=== PATIENT | male | born 1995 | race Caucasian/White ===

== ENCOUNTER 2018-06-02 14:58 | Emergency (ER) | payer OTHER, SELFPAY ==
[2018-06-02 15:03] VITALS: BP 166/77; PULSE 65; RESP 20; TEMP 37; O2SAT 100
--- NOTE | 2018-06-02 15:12 | DI.CT_ITS ---
SYMPTOM/DIAGNOSIS: LT ABD PAIN BLOATING, DIARRHEA, NAUSEA CT ABDOMEN AND PELVIS: The study was carried out with intravenous administration of 100 cc Omnipaque 350. The lower thorax is unremarkable. Decreased parenchymal density would be consistent with fatty infiltration. The gallbladder is normal. There are no stones or ductal dilatation. The pancreas and spleen and adrenals are normal. There is no evidence of bowel obstruction or mucosal thickening. There is nothing to suggest an acute appendix. The bladder is unremarkable. The reproductive organs as visualized are unremarkable. There is no evidence of free air or free fluid in the intraperitoneal space. No acute bony abnormality seen. The soft tissues are unremarkable. There is no abdominal aortic aneurysm. Prominent lymph nodes at the small bowel mesentery and right lower quadrant. These may be reactive but an infectious or inflammatory process such as mesenteric adenitis cannot be excluded. Clinical correlation is recommended. SUMMARY: Prominent mesenteric nodes. Please see the above discussion.
--- NOTE | 2018-06-02 15:14 | W.ED.GENAD ---
Discharge Plan Discharge Details Chief Complaint: Nausea/Vomit/Diar Primary Care Provider: Steve Min ED Provider: Cristian Hernandez Home Meds and New Rx's Prescriptions: No Action omeprazole 40 MG capsule,delayed release(DR/EC) 40 mg PO DAILY 30 Days Qty: 30 RF: 0 buspirone 15 MG tablet 15 mg PO BID Qty: 60 RF: 11 Medical Decision Making 22-year-old male presents with left-sided abdominal pain and loose watery stools over days time. Associated with bloating sensation on the left side of his abdomen. He is afebrile and well-appearing. He is tender in the abdomen. Differential diagnosis includes colitis, dehydration, ileus, mass. Patient referred for laboratory testing and CT images. Patient has a white blood cell count of 5, hematocrit 47, platelets 199. Sodium 141, potassium 3.4, BUN 12 with creatinine 1.3. AST and ALT unremarkable, glucose is 160. Imaging studies reveal prominent mesenteric lymph nodes. No other acute findings. Consistent with mesenteric adenitis. Discussed findings with patient and she is stable for outpatient management. HPI General Mode of arrival: ambulatory. Date/Time Provider Initiated Documentation: 06/02/18 15:00. Limitations to Documentation: no limitations. Information obtained by: patient. History of Present Illness 22 year old M presents to the emergency department with the chief complaint of Abdominal pain, described as mild, Quality is described as dull, and is localized to the abdomen and left. Patient reports no radiation. Patient started experiencing this day(s) and it has been constant. No relieving factors improve symptom(s), HPI Narrative: Left abdominal pain and bloating: This is a 22-year-old healthy male who states that he has had intermittent episodes of left-sided abdominal pain that is achy, nonradiating, worse with eating and associated with bloating and belching. He has had loose, watery stools 4-5 times a day over 1 week's time. He has not had a fever. No travel. No known suspicious or ill contact Related Data Home Medications Medication Instructions Recorded Confirmed omeprazole 40 mg PO DAILY 30 Days #30 tab-cap 11/18/17 06/02/18 buspirone 15 mg PO BID #60 tab-cap 02/03/18 06/02/18 Previous Rx's Medication Instructions Recorded omeprazole 40 mg PO DAILY 30 Days #30 tab-cap 11/18/17 buspirone 15 mg PO BID #60 tab-cap 02/03/18 Allergies Allergy/AdvReac Type Severity Reaction Status Date / Time No Known Allergies Allergy Unverified 06/02/18 15:05 General Stated Complaint: Nausea/Vomit/Diar MANJINDER: 4 Review of Systems Review of Systems 8 systems reviewed and otherwise negative PFSH Family History Mother Hyperlipidemia Asthma Father No problems noted. Sister Asthma Grandfather Mental disorder Grandfather Diabetes Essential hypertension Personal history of malignant neoplasm Heart disease Cerebrovascular accident Grandmother Essential hypertension Heart disease Hyperlipidemia Asthma Grandmother Diabetes Essential hypertension Hyperlipidemia Social History Smoking/Tobacco Use Status: Never Exam Narrative Exam Narrative: GEN: awake, alert, oriented 3. Pleasant, well groomed, interactive. HEAD: Normocephalic, atraumatic ENT: Mucous membranes moist, oropharynx unremarkable, External ear exam unremarkable EYES: PERRL, EOMI NECK: Full ROM, no HUE, no menigismus CHEST/RESP: Nontender, clear to auscultation bilateral, no wheeze/rhonchi/rales CARDIOVASCULAR: RRR, no murmur, rub anali. 2+ Rad pulse bilateral ABDOMEN: Soft, left-sided tenderness to palpation without rebound or guarding, no mass. +Bowel sounds EXT: Full ROM, no edema, no rash Neuro: Grossly normal neurologic exam, conversant, interactive. Psych: Speech fluent, thoughts congruent, affect normal Course Vital Signs Temperature 37 C 06/02/18 15:03 Pulse 65 06/02/18 15:03 Respiratory Rate 20 06/02/18 15:03 Blood Pressure 166/77 H 06/02/18 15:03 Pulse Oximetry 100 06/02/18 15:03 Temperature 37 C 06/02/18 15:03 Temperature Source Temporal Artery Scan 06/02/18 15:03 Pulse 65 06/02/18 15:03 Respiratory Rate 20 06/02/18 15:03 Respiratory Effort Non-Labored 06/02/18 15:06 Blood Pressure 166/77 H 06/02/18 15:03 Pulse Oximetry 100 06/02/18 15:03 Oxygen Delivery Method Room Air 06/02/18 15:03 Oxygen Flow Rate 0 06/02/18 15:03 Pain Level 2 06/02/18 15:03
--- NOTE | 2018-06-02 15:17 | ED.GENADUL_ITS ---
Discharge Plan Discharge Details Chief Complaint: Nausea/Vomit/Diar Primary Care Provider: Steve Min ED Provider: Cristian Hernandez Home Meds and New Rx's Prescriptions: No Action omeprazole 40 MG capsule,delayed release(DR/EC) 40 mg PO DAILY 30 Days Qty: 30 RF: 0 buspirone 15 MG tablet 15 mg PO BID Qty: 60 RF: 11 Medical Decision Making 22-year-old male presents with left-sided abdominal pain and loose watery stools over days time. Associated with bloating sensation on the left side of his abdomen. He is afebrile and well-appearing. He is tender in the abdomen. Differential diagnosis includes colitis, dehydration, ileus, mass. Patient referred for laboratory testing and CT images. Patient has a white blood cell count of 5, hematocrit 47, platelets 199. Sodium 141, potassium 3.4, BUN 12 with creatinine 1.3. AST and ALT unremarkable , glucose is 160. Imaging studies reveal prominent mesenteric lymph nodes. No other acute findings. Consistent with mesenteric adenitis. Discussed findings with patient and she is stable for outpatient management. HPI General Mode of arrival: ambulatory . Date/Time Provider Initiated Documentation: 06/02/18 15:00 . Limitations to Documentation: no limitations . Information obtained by: patient . History of Present Illness 22 year old M presents to the emergency department with the chief complaint of Abdominal pain, described as mild, Quality is described as dull, and is localized to the abdomen and left. Patient reports no radiation. Patient started experiencing this day(s) and it has been constant. No relieving factors improve symptom(s), HPI Narrative: Left abdominal pain and bloating: This is a 22-year-old healthy male who states that he has had intermittent episodes of left-sided abdominal pain that is achy, nonradiating, worse with eating and associated with bloating and belching. He has had loose, watery stools 4-5 times a day over 1 week's time. He has not had a fever. No travel. No known suspicious or ill contact Related Data Home Medications Medication Instructions Recorded Confirmed omeprazole 40 mg PO DAILY 30 Days #30 tab-cap 11/18/17 06/02/18 buspirone 15 mg PO BID #60 tab-cap 02/03/18 06/02/18 Previous Rx's Medication Instructions Recorded omeprazole 40 mg PO DAILY 30 Days #30 tab-cap 11/18/17 buspirone 15 mg PO BID #60 tab-cap 02/03/18 Allergies Allergy/AdvReac Type Severity Reaction Status Date / Time No Known Allergies Allergy Unverified 06/02/18 15:05 General Stated Complaint: Nausea/Vomit/Diar MANJINDER: 4 Review of Systems Review of Systems 8 systems reviewed and otherwise negative PFSH Family History Mother Hyperlipidemia Asthma Father No problems noted. Sister Asthma Grandfather Mental disorder Grandfather Diabetes Essential hypertension Personal history of malignant neoplasm Heart disease Cerebrovascular accident Grandmother Essential hypertension Heart disease Hyperlipidemia Asthma Grandmother Diabetes Essential hypertension Hyperlipidemia Social History Smoking/Tobacco Use Status: Never Exam Narrative Exam Narrative: GEN: awake, alert, oriented 3. Pleasant, well groomed, interactive. HEAD: Normocephalic, atraumatic ENT: Mucous membranes moist, oropharynx unremarkable, External ear exam unremarkable EYES: PERRL, EOMI NECK: Full ROM, no HUE, no menigismus CHEST/RESP: Nontender, clear to auscultation bilateral, no wheeze/rhonchi/rales CARDIOVASCULAR: RRR, no murmur, rub anali. 2+ Rad pulse bilateral ABDOMEN: Soft, left-sided tenderness to palpation without rebound or guarding, no mass. +Bowel sounds EXT: Full ROM, no edema, no rash Neuro: Grossly normal neurologic exam, conversant, interactive. Psych: Speech fluent, thoughts congruent, affect normal Course Vital Signs Temperature 37 C 06/02/18 15:03 Pulse 65 06/02/18 15:03 Respiratory Rate 20 06/02/18 15:03 Blood Pressure 166/77 H 06/02/18 15:03 Pulse Oximetry 100 06/02/18 15:03 Temperature 37 C 06/02/18 15:03 Temperature Source Temporal Artery Scan 06/02/18 15:03 Pulse 65 06/02/18 15:03 Respiratory Rate 20 06/02/18 15:03 Respiratory Effort Non-Labored 06/02/18 15:06 Blood Pressure 166/77 H 06/02/18 15:03 Pulse Oximetry 100 06/02/18 15:03 Oxygen Delivery Method Room Air 06/02/18 15:03 Oxygen Flow Rate 0 06/02/18 15:03 Pain Level 2 06/02/18 15:03
[2018-06-02] MEDS: Lactated Ringers 1,000 ML 1000 ML IV (15:30)
[2018-06-02 15:34] LABS: Abs Immature Grans 0.01 k/cumm (0.0-0.09); Absolute Basophil Count 0.07 k/cumm (0.0-0.2); Absolute Eosinophil Count 0.29 k/cumm (0.0-0.7); Absolute Lymphocyte Count 2.17 k/cumm (1.2-3.4); Absolute Neutrophil Count 2.45 k/cumm (1.2-6.7); Basophils % 1.3; Eosinophils % 5.2; HGB 15.3 g/dL (13.5-17.5); Immature Grans % 0.2; Lymphocytes % 38.8; Mean Corp. HGB Concentration 32.6 g/dL (32.0-36.0); Mean Platelet Volume 10.7 fL (8.0-11.0); Monocytes % 10.7; Neutrophils % 43.8; Platelet Count 199 x1000/uL (130-400); RBC 5.66 m/cumm (4.50-6.00); RBC Distribution Width 13.5 % (11.8-14.1); White Blood Cell Count 5.59 k/cumm (4.4-10.8)
[2018-06-02 15:44] LABS: ALT 16 U/L (12-78); AST 11 U/L (15-37); Albumin 4.3 g/dL (3.4-5.0); Alkaline Phosphatase 77 U/L (46-116); Anion Gap 8.4 mmol/L (3-11); BUN 12 mg/dL (7-18); Bilirubin, Total 0.5 mg/dL (0.2-1.0); CO2 29.6 mmol/L (21.0-32.0); CREATININE 1.31 mg/dL (0.70-1.30); Calcium 8.7 mg/dL (8.5-10.1); Chloride 103 mmol/L (98-107); Glucose 116 mg/dL (70-100); Potassium 3.4 mmol/L (3.5-5.1); Sodium 141 mmol/L (136-145); Total Protein 7.7 g/dL (6.4-8.2)
[2018-06-02] MEDS: Omnipaque 350 MG/ML 100 ML BTL IV (15:56)
--- NOTE | 2018-06-02 16:37 | DI.VRAD_ITS ---
EXAM: CT Abdomen and Pelvis With Intravenous Contrast EXAM DATE/TIME: 06/02/2018 3:49 PM CLINICAL HISTORY: 22 years old, male; Signs and symptoms; Nausea and vomiting and other: Left sided abd pain TECHNIQUE: Axial computed tomography images of the abdomen and pelvis with intravenous contrast. All CT scans at this facility use at least one of these dose optimization techniques: automated exposure control; mA and/or kV adjustment per patient size (includes targeted exams where dose is matched to clinical indication); or iterative reconstruction. Coronal and sagittal reformatted images were created and reviewed. CONTRAST: 100 ml of omnipaque 350 administered intravenously. COMPARISON: No relevant prior studies available. FINDINGS: Lower thorax: No acute findings. ABDOMEN: Liver: Diffuse decrease in hepatic parenchymal density, consistent with fatty infiltration. Gallbladder and bile ducts: Normal. No calcified stones. No ductal dilation. Pancreas: Normal. No ductal dilation. Spleen: Normal. No splenomegaly. Adrenals: Normal. No mass. Kidneys and ureters: Normal. No hydronephrosis. Stomach and bowel: Normal. No obstruction. No mucosal thickening. Appendix: No evidence of appendicitis. PELVIS: Bladder: Unremarkable as visualized. Reproductive: Unremarkable as visualized. ABDOMEN and PELVIS: Intraperitoneal space: See Lymph Nodes Finding. Bones/joints: No acute fracture. No dislocation. Soft tissues: Unremarkable. Vasculature: Normal. No abdominal aortic aneurysm. Lymph nodes: Prominent lymph nodes at the small bowel mesentery and right lower quadrant. These may be reactive, but an infectious, or inflammatory process such as mesenteric adenitis cannot be excluded. Correlate clinically. IMPRESSION: Prominent mesenteric nodes, see above comments. Dictated and Authenticated by: Trenton Santos MD. Ordering:ALISA GARCIA MD
[2018-06-02 16:48] VITALS: BP 166/77; PULSE 65; RESP 20; TEMP 37; O2SAT 100
== END 2018-06-02 17:10 | disposition home or self-care (01) ==
PROVIDERS: Emergency Provider Emergency Medicine; PCP Family Medicine
DX: I88.0 Nonspecific mesenteric lymphadenitis (principal)
CPT/HCPCS: 36415; 80053; 96360; 96361; 99285; 74177; 85025; 99284; J3490

== ENCOUNTER 2019-11-10 02:56 | Outpatient (CLI) | payer OTHER, SELFPAY ==
[2019-11-10 14:17] LABS: Calculated LDL 139 mg/dL (<100); Cholesterol 226 mg/dL (<200); HDL Cholesterol 68 mg/dL (40-60); Triglyceride 96 mg/dL (<150)
== END 2019-11-10 03:16 ==
PROVIDERS: PCP Family Medicine; Visit Provider Family Medicine
DX: Z83.438 Family history of other disorder of lipoprotein metabolism and other lipidemia (principal); Z13.220 Encounter for screening for lipoid disorders
CPT/HCPCS: 36415; 80061

== ENCOUNTER 2020-02-17 13:58 | Outpatient (CLI) | payer OTHER, SELFPAY ==
[2020-02-18 02:48] LABS: COVID-19 RT-PCR UVMMC Result Negative (Negative)
== END 2020-02-17 14:18 ==
PROVIDERS: PCP Family Medicine; Visit Provider Family Medicine
DX: Z11.59 Encounter for screening for other viral diseases (principal)
CPT/HCPCS: U0003

== ENCOUNTER 2020-08-13 13:08 | Outpatient (CLI) | payer OTHER, SELFPAY ==
[2020-08-15 09:41] LABS: COVID-19 RT-PCR Result Positive (Negative)
== END 2020-08-13 13:28 ==
PROVIDERS: PCP Family Medicine; Visit Provider Family Medicine
DX: Z20.828 Contact with and (suspected) exposure to other viral communicable diseases (principal)
CPT/HCPCS: U0003

== ENCOUNTER 2020-09-27 12:00 | Outpatient (REF) | payer OTHER, SELFPAY ==
[2020-10-02 15:32] LABS: Helicobacter pylori Ag, Feces Negative (Negative)
== END 2020-09-27 12:20 ==
LOC: LBN 12:00
PROVIDERS: PCP Family Medicine; Visit Provider Family Medicine
DX: R10.9 Unspecified abdominal pain (principal)
CPT/HCPCS: 87338

== ENCOUNTER 2020-12-03 09:34 | Outpatient (CLI) | payer OTHER, SELFPAY ==
[2020-12-04 13:45] LABS: COVID-19 RT-PCR UVMMC Result Negative (Negative)
== END 2020-12-03 09:35 | disposition home or self-care (01) ==
PROVIDERS: PCP Family Medicine; Visit Provider Nurse Practitioner Family
DX: Z20.828 Contact with and (suspected) exposure to other viral communicable diseases (principal)
CPT/HCPCS: U0003

== ENCOUNTER 2020-12-31 10:27 | Observation (INO) | payer OTHER, SELFPAY ==
[2020-12-31] VITALS (48 sets, daily range): BP systolic 121–166; BP diastolic 58–87; PULSE 62–101; RESP 12–18; TEMP 36–37; O2SAT 87–100; BMI 25.1
--- NOTE | 2020-12-31 10:43 | W.ED.GENAD ---
Discharge Plan Discharge Details Chief Complaint: Abd Prob Attending Provider: Yosef Guerra Primary Care Provider: Steve Min ED Provider: Margarita Michel Discharge Data Discharge Date/Time-TO BE ENTERED AT DEPARTURE: 12/31/20 15:47 Medical Decision Making Jake Bustamante is a 25-year-old man with a history of irritable bowel syndrome, anxiety who presented to emergency department with several days of nausea and right-sided abdominal pain that began this morning. On exam patient is well and nontoxic-appearing. He appears comfortable. Right lower quadrant tenderness palpation greater than right upper quadrant tenderness palpation, negative Herrera's, no rebound, no guarding. No left-sided abdominal tenderness to palpation. Concern for irritable bowel syndrome, appendicitis, gastroenteritis, other. Doubt ureterolithiasis. Exam/history at this time is not consistent with acute coronary syndrome, mesenteric ischemia, sepsis, acute aortic pathology. Plan for IV fluid hydration, screening labs, CT abdomen/pelvis. Patient declines nausea medication and pain medication at this time. CT shows enlarged appendix concerning for appendicitis per radiology. I discussed patient presentation results with Dr. Guerra of surgery, who states that she will be down to see the patient, requests Mamta. Discussed results with patient. He states that he did eat 1 bite of a pop tart sometime before 1030 this morning, no other p.o. intake since midnight. Patient reports that pain is mild at this time and declines pain meds. Clinical impression: Appendicitis Disposition: OR Medical Records Medical records reviewed: Yes I reviewed the patient's medical records. Imaging Data Radiologic Study: Attestation: I personally reviewed and interpreted this imaging study as follows: Radiologist's impression: EXAM: CT ABDOMEN PELVIS W CLINICAL HISTORY: RLQ pain > RUQ pain. TECHNIQUE: Imaging Protocol: Axial computed tomography images with coronal and sagittal reformatted images were created and reviewed CONTRAST MATERIAL: Intravenous: Omnipaque 100cc Oral: None FINDINGS: VISUALIZED LUNG BASES: No nodules nor pleural effusions evident. ABDOMEN: There is no ascites. LIVER: There are no focal hepatic lesions evident . GALLBLADDER/BILIARY: No obvious gallbladder pathology. CBD is not dilated. PANCREAS: No evidence of pancreatic mass nor dilatation of the pancreatic duct. SPLEEN: Spleen is not enlarged. No obvious intrasplenic lesions. Splenic and portal veins are patent. ADRENALS: There are no significant adrenal masses. KIDNEYS:No cysts evident. No solid renal masses. No calculi nor hydronephrosis.. ABDOMINAL AORTA: Abdominal aorta is not enlarged. LYMPH NODES:There is no retroperitineal nor paraaortic adenopathy. ABDOMINAL WALL/GI: No evidence of significant anterior abdominal wall hernia. No bowel obstruction. PELVIS: GI: The appendix is abnormally thickened to 9 millimeters... Suspicious for appendicitis. No appendicular lith. No prominent periappendiceal streaking at this time. Nevertheless the appendix does appears significantly more thick in diameter than on the May 2018 CT scan. LYMPH NODES: There is no intrapelvic nor inguinal adenopathy. REPRODUCTIVE: Age-appropriate URINARY BLADDER: No calculi nor obvious masses evident OSSEOUS: No significant osseous lesions. IMPRESSION: 1. Findings are suspicious for acute appendicitis. No evidence of rupture at this time. Lab Data Lab results reviewed: Yes I reviewed the patient's lab results. Labs: Laboratory Tests Range/Units 12/31/20 12/31/20 12/31/20 10:38 10:38 11:48 WBC (4.4-10.8) 10^3/uL 10.84 H RBC (4.36-5.78) 10^6/uL 5.86 H Hgb (13.5-17.5) g/dL 16.1 Hct (40.0-50.0) % 49.1 MCV (80-95) fL 83.8 MCH (27.0-33.0) pg 27.5 MCHC (32.0-36.0) % 32.8 RDW (11.8-14.1) % 12.5 Plt Count (130-400) 10^3/uL 161 MPV (8.0-11.0) fL 10.8 Immature Gran % 0.5 Neutrophils % 78.2 Lymphocytes % 11.0 Monocytes % 8.0 Eosinophils % 1.9 Basophils % 0.4 Nucleated RBC % % 0 Absolute Neutrophils (1.2-6.7) 10^3/uL 8.48 H Absolute Lymphocytes (1.2-3.4) 10^3/uL 1.19 L Absolute Monocytes (0.1-0.8) 10^3/uL 0.87 H Absolute Eosinophils (0.0-0.7) 10^3/uL 0.21 Absolute Basophils (0.0-0.2) 10^3/uL 0.04 Sodium (136-145) mmol/L 139 Potassium (3.5-5.1) mmol/L 3.8 Chloride (98-107) mmol/L 101 Carbon Dioxide (21.0-32.0) mmol/L 29.7 Anion Gap (3-11) mmol/L 8.3 BUN (7-18) mg/dL 11 Creatinine (0.70-1.30) mg/dL 1.0 Estimated GFR/1.73 m2 (mL/min/1.73m2) >= 60.00 Glucose (74-106) mg/dL 100 Calcium (8.5-10.1) mg/dL 9.4 Total Bilirubin (0.2-1.0) mg/dL 0.9 AST (15-37) U/L 14 L ALT (16-63) U/L 23 Alkaline Phosphatase (46-116) U/L 91 Total Protein (6.4-8.2) g/dL 8.1 Albumin (3.4-5.0) g/dL 4.6 Lipase (73-393) U/L 70 Urine Color (Yellow) Yellow Urine Clarity (Clear) Clear Urine pH (5-8) 8.0 Ur Specific [place] (1.005-1.025) 1.020 Urine Protein (Negative) mg/dL Negative Urine Ketones (Negative) mg/dL Negative Urine Blood (Negative) Negative Urine Nitrite (Negative) Negative Urine Bilirubin (Negative) Negative Urine Urobilinogen (Up TO 0.2) EU/dL 0.2 Ur Leukocyte Esterase (Negative) Negative Urine Glucose (Negative) mg/dL Negative HPI General Mode of arrival: ambulatory. Date/Time Provider Initiated Documentation: 12/31/20 10:43. Limitations to Documentation: no limitations. Information obtained by: patient, RN notes reviewed and old records reviewed. HPI Narrative: Jake Bustamante is a 25-year-old man with a history of irritable bowel syndrome, anxiety presenting to the emergency department with abdominal pain. Patient reports that he has had nausea for several days. He reports that he has been able to eat and drink as usual up until this morning. Patient reports he woke up this morning at 530 with right-sided abdominal pain, worse in the right upper quadrant. Patient reports that pain has gradually been getting worse. He states that his nausea has continued and he had 1 episode of diarrhea prior to arrival. Bowel movements normal in the last 2 days without diarrhea or constipation. He denies fever, vomiting, any other new pain, cough, shortness of breath, numbness, weakness, rash, dysuria. Patient concerned that he has a history of irritable bowel syndrome, states that his pain usually manifest as left upper quadrant pain and that he has never had similar pain to what he is currently experiencing. Patient reports that he was unable to eat anything this morning secondary to nausea. He states that he drinks 1-2 alcoholic beverages per week, and drink 2 alcoholic beverages 2 days ago. He denies recreational drug use, nicotine/tobacco use. Related Data Home Medications Medication Instructions Recorded Confirmed pantoprazole 40 mg tablet,delayed 40 mg PO DAILY 12/12/20 12/31/20 release Allergies Allergy/AdvReac Type Severity Reaction Status Date / Time No Known Allergies Allergy Verified 12/31/20 10:34 General Stated Complaint: Abd Prob MANJINDER: 3 Review of Systems Narrative: Constitutional: denies fevers Eyes: denies eye pain ENT: denies ear pain, dental pain, sore throat Cardiovascular: denies chest pain Respiratory: denies SOB, cough GI: denies vomiting, reports abdominal pain, nausea, diarrhea : denies flank pain MSK: denies back pain, neck pain, arthralgias, myalgias Skin: denies rash Neuro: denies headaches, numbness, weakness FOR[facility], [facility] Medical History Ingrown toenail of left foot Family History Mother Hyperlipidemia Asthma Father Hyperlipidemia Hypertension Sister Asthma Maternal Grandfather , 49 Mental disorder Depression Alcohol abuse Depression Paternal Grandfather , 76 Diabetes Essential hypertension Heart disease Stroke Skin cancer Maternal Grandmother , 58 Essential hypertension Heart disease Hyperlipidemia Asthma Alcohol abuse Depression Diabetes Paternal Grandmother , 74 Diabetes Essential hypertension Hyperlipidemia Depression Heart disease Social History Smoking/Tobacco Use Status: Never Second Hand Exposure: Yes Smoking risk assessment performed?: Yes Alcohol Intake: current Alcohol Intake frequency: a few times a month Alcohol type: beer, wine and hard liquor Drug use: Never Substance use type: does not use Caregiver/Support person: No Household members: significant other Housing: apartment Communication Needs: None Do you need help understanding health information?: Rarely Pets and animals: Yes Pets and animals: dog(s) Sexually active: Yes Do you think of yourself as: straight/heterosexual Current gender identity: male What is your relationship status?: living with partner How often do you talk on the phone with friends or family?: never How often do you get together with friends or relatives?: twice per week How often do you attend sabianism or jew services?: decline to answer Do you belong to any clubs or organized social groups?: no Panel score (0-1 are the most socially isolated patients): 1 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: 5-6 times per week Bella/Yazidism: none Special bella needs: No Seatbelt use: always Helmet use: Yes Helmet use: always Drive intox or ride w/intox regional driver: No Do you feel safe at home: Yes Do you feel safe in your relationship?: Yes Exam Narrative Exam Narrative: Constitutional: well and [id number], pleasant, conversing normally HENT: head atraumatic/normocephalic/normal inspection, mucous membranes moist Eyes: conjunctiva normal, sclera normal, pupils 3mm b/l Neck: no stridor, normal ROM, trachea midline Resp: normal work of breathing, speaking full sentences Cardio: normal rate, normal rhythm GI: abdomen soft, non-distended, right lower quadrant tenderness to palpation greater than right upper quadrant, no left-sided tenderness to palpation, no rebound, no guarding Skin: warm, dry, normal color, no rash Neuro: alert, not altered, grossly non-focal, normal tone Ext: Moving all extremities equally Psych: normal mood, normal affect, normal behavior Course Vital Signs Vital signs: Vital Signs Temperature 36 C L 12/31/20 10:31 Pulse 88 12/31/20 10:31 Respiratory Rate 16 12/31/20 10:31 Blood Pressure 166/83 H 12/31/20 10:31 Pulse Oximetry 100 12/31/20 10:31 Temperature 36 C L 12/31/20 10:31 Temperature Source Skin 12/31/20 10:31 Pulse 88 12/31/20 10:34 Respiratory Rate 16 12/31/20 10:31 Respiratory Effort Non-Labored 12/31/20 10:35 Blood Pressure 166/83 H 12/31/20 10:34 Blood Pressure Mean 103 12/31/20 10:34 Blood Pressure Position Supine 12/31/20 10:31 Pulse Oximetry 100 12/31/20 10:35 Oxygen Delivery Method Room Air 12/31/20 10:31 Oxygen Flow Rate 0 12/31/20 10:31 Pain Level 5 12/31/20 10:35
[2020-12-31] MEDS: Normal Saline 1,000 ML 1000 ML IV (11:07)
[2020-12-31 11:23] LABS: Abs Immature Grans 0.05 10^3/uL (0.0-0.06); Absolute Basophil Count 0.04 10^3/uL (0.0-0.2); Absolute Eosinophil Count 0.21 10^3/uL (0.0-0.7); Absolute Lymphocyte Count 1.19 10^3/uL (1.2-3.4); Absolute Monocyte Count 0.87 10^3/uL (0.1-0.8); Absolute Neutrophil Count 8.48 10^3/uL (1.2-6.7); Basophils % 0.4; Eosinophils % 1.9; HCT 49.1 % (40.0-50.0); HGB 16.1 g/dL (13.5-17.5); Immature Grans % 0.5; MCH 27.5 pg (27.0-33.0); MCHC 32.8 % (32.0-36.0); MCV 83.8 fL (80-95); MPV 10.8 fL (8.0-11.0); Neutrophils % 78.2; Nucleated RBC 0 %; Platelet Count 161 10^3/uL (130-400); RBC 5.86 10^6/uL (4.36-5.78); RDW 12.5 % (11.8-14.1); WBC 10.84 10^3/uL (4.4-10.8)
[2020-12-31 11:34] LABS: ALT 23 U/L (16-63); AST 14 U/L (15-37); Albumin 4.6 g/dL (3.4-5.0); Alkaline Phosphatase 91 U/L (46-116); Anion Gap 8.3 mmol/L (3-11); BUN 11 mg/dL (7-18); Bilirubin, Total 0.9 mg/dL (0.2-1.0); CO2 29.7 mmol/L (21.0-32.0); Calcium 9.4 mg/dL (8.5-10.1); Chloride 101 mmol/L (98-107); Glucose 100 mg/dL (74-106); Lipase 70 U/L (73-393); Potassium 3.8 mmol/L (3.5-5.1); Sodium 139 mmol/L (136-145); Total Protein 8.1 g/dL (6.4-8.2)
--- NOTE | 2020-12-31 11:45 | DI.CT_ITS ---
EXAM: CT ABDOMEN PELVIS W CLINICAL HISTORY: RLQ pain > RUQ pain. TECHNIQUE: Imaging Protocol: Axial computed tomography images with coronal and sagittal reformatted images were created and reviewed CONTRAST MATERIAL: Intravenous: Omnipaque 100cc Oral: None FINDINGS: VISUALIZED LUNG BASES: No nodules nor pleural effusions evident. ABDOMEN: There is no ascites. LIVER: There are no focal hepatic lesions evident . GALLBLADDER/BILIARY: No obvious gallbladder pathology. CBD is not dilated. PANCREAS: No evidence of pancreatic mass nor dilatation of the pancreatic duct. SPLEEN: Spleen is not enlarged. No obvious intrasplenic lesions. Splenic and portal veins are paten t. ADRENALS: There are no significant adrenal masses. KIDNEYS:No cysts evident. No solid renal masses. No calculi nor hydronephrosis.. ABDOMINAL AORTA: Abdominal aorta is not enlarged. LYMPH NODES:There is no retroperitineal nor paraaortic adenopathy. ABDOMINAL WALL/GI: No evidence of significant anterior abdominal wall hernia. No bowel obstruction. PELVIS: GI: The appendix is abnormally thickened to 9 millimeters... Suspicious for appendicitis. No append icular lith. No prominent periappendiceal streaking at this time. Nevertheless the appendix does ap pears significantly more thick in diameter than on the May 2018 CT scan. LYMPH NODES: There is no intrapelvic nor inguinal adenopathy. REPRODUCTIVE: Age-appropriate URINARY BLADDER: No calculi nor obvious masses evident OSSEOUS: No significant osseous lesions. IMPRESSION: 1. Findings are suspicious for acute appendicitis. No evidence of rupture at this time. RADIATION DOSE DELIVERED: 589.99mGy.cm Total DLP DATA REPOSITORY: All CT scans at this facility are submitted to the National Radiology Data Registry (NRDR) Dose Index Registry (DIR) with the [employer] (ACR). RADIATION OPTIMIZATION: All CT scans at this facility use at least one of these dose optimization te chniques: automated exposure control; mA and/or kV adjustment per patient size (includes targeted exa ms where dose is matched to clinical indication); or iterative reconstruction.
[2020-12-31 11:55] LABS: Bilirubin Negative (Negative); Blood Negative (Negative); Clarity Clear (Clear); Glucose Negative (Negative); Ketones Negative (Negative); Leukocyte Esterase Negative (Negative); Nitrite Negative (Negative); Urobilinogen 0.2 EU/dL (Up TO 0.2)
[2020-12-31] MEDS: Normal Saline - Diluent 50 ML VIAL IV (12:10)
[2020-12-31] MEDS: Normal Saline Flush 10 ML SYR IVP ×2 (12:11→23:38)
[2020-12-31] MEDS: PIPERACILLIN/TAZO 3.375 GM in Normal Saline 50 ML IVPB (12:56)
[2020-12-31 13:04] LABS: Source Nasal/Nares
[2020-12-31 13:45] LABS: COVID-19 PCR Negative (Negative)
--- NOTE | 2020-12-31 15:08 | W.ANESPRE ---
Anesthesia Assessment and Plan Anesthesia History Personal History: No History of Anesthesia Complications Family History: No Family History of Anesthesia Complications Exercise Tolerance Exercise Tolerance: Metabolic Equivalents>4 Pertinent Negatives Pertinent Negatives: No Symptoms of GERD (no symptoms today controlled with pantoprazole) Cardiac & Pulmonary Exam Cardiac Exam: Normal S1/S2 Heart Sounds Pulmonary Exam: Clear Bilateral Breath Sounds Airway Exam Known Difficult Airway: No Mallampati Class: 1 Mouth Opening: Normal (> 3cm) Thyromental Distance: Greater than 3 cm Neck Range of Motion: Full ROM Neck Circumference: Normal Teeth Condition: Normal Dentition ASA Classification ASA Score: ASA 2 ASA Emergency: Yes NPO Status NPO Status: NPO Clears >2 hours, Solids >8 hours Anesthesia Plan Anesthesia Technique: General Anesthesia Airway Planned: Endotracheal Tube Monitors Used: Standard Monitors General Info Date of Service This is a Shared Provider Document. All providers who document on this will be required to sign document once completed. Please Communicate with Team Date Performed: 12/31/20 Height: 5 ft 9 in Weight: 77.111 kg Body Mass Index (BMI): 25.1 Vital Signs and Lab Results Vital Signs Most Recent Vital Signs in EMR: Most Recent Vital Signs Temp Pulse Resp BP Pulse Ox 36 C L 72 16 126/58 L 99 12/31/20 10:31 12/31/20 14:01 12/31/20 10:31 12/31/20 14:01 12/31/20 14:01 Point of Care Results Nursing Point of Care Results: No Data to Display Lab Results Result Diagrams: 12/31/20 10:38 12/31/20 10:38 Blood Type / Crossmatch: No Data to Display Complete Blood Count: White Blood Count 10.84 10^3/uL (4.4-10.8) H 12/31/20 10:38 12/31/20 Red Blood Count 5.86 10^6/uL (4.36-5.78) H 12/31/20 10:38 12/31/20 Hemoglobin 16.1 g/dL (13.5-17.5) 12/31/20 10:38 12/31/20 Hematocrit 49.1 % (40.0-50.0) 12/31/20 10:38 12/31/20 Platelet Count 161 10^3/uL (130-400) 12/31/20 10:38 12/31/20 Complete Metabolic Panel: Sodium Level 139 mmol/L (136-145) 12/31/20 10:38 12/31/20 Potassium Level 3.8 mmol/L (3.5-5.1) 12/31/20 10:38 12/31/20 Chloride Level 101 mmol/L (98-107) 12/31/20 10:38 12/31/20 Carbon Dioxide Level 29.7 mmol/L (21.0-32.0) 12/31/20 10:38 12/31/20 Blood Urea Nitrogen 11 mg/dL (7-18) 12/31/20 10:38 12/31/20 Creatinine 1.0 mg/dL (0.70-1.30) 12/31/20 10:38 12/31/20 Calcium Level 9.4 mg/dL (8.5-10.1) 12/31/20 10:38 12/31/20 Albumin 4.6 g/dL (3.4-5.0) 12/31/20 10:38 12/31/20 Glucose Level 100 mg/dL (74-106) 12/31/20 10:38 12/31/20 Liver Function Panel: Alanine Aminotransferase (ALT/SGPT) 23 U/L (16-63) 12/31/20 10:38 12/31/20 Aspartate Amino Transf (AST/SGOT) 14 U/L (15-37) L 12/31/20 10:38 12/31/20 Coagulation Panel: D-Dimer 1145 ng/mlFEU (65-500) H 04/01/16 12:35 04/01/16 Cardiac Panel: No Data to Display Arterial Blood Gas: No Data to Display Venous Blood Gas: No Data to Display Pancreas Panel: Lipase 70 U/L (73-393) 12/31/20 10:38 12/31/20 Thyroid Panel: No Data to Display Infectious Disease: Coronavirus (COVID-19)(PCR) Negative (Negative) 12/31/20 13:00 12/31/20 Coronavirus 2019 Source Nasal/nares 12/31/20 13:00 12/31/20 Group A Streptococcus Rapid Negative 11/13/17 13:21 11/13/17 Blood Cultures: Blood Culture Toxicology Panel: No Data to Display Panel: No Data to Display PFSH Active Problems Active Problems: Problem Status Onset Code Ingrown toenail of left foot L60.0 Abdominal pain R10.9 Family history of hyperlipidemia Z83.438 IBS (irritable bowel syndrome) K58.9 Multiple somatic complaints 12/09/17 R68.89 Anxiety 12/09/17 F41.9 Medical History Ingrown toenail of left foot Social History Smoking/Tobacco Use Status: Never Second Hand Exposure: Yes Smoking risk assessment performed?: Yes Alcohol Intake: current Alcohol Intake frequency: a few times a month Alcohol type: beer, wine and hard liquor Drug use: Never Substance use type: does not use Caregiver/Support person: No Household members: significant other Housing: apartment Communication Needs: None Do you need help understanding health information?: Rarely Pets and animals: Yes Pets and animals: dog(s) Sexually active: Yes Do you think of yourself as: straight/heterosexual Current gender identity: male What is your relationship status?: living with partner How often do you talk on the phone with friends or family?: never How often do you get together with friends or relatives?: twice per week How often do you attend scientologist or christianity services?: decline to answer Do you belong to any clubs or organized social groups?: no Panel score (0-1 are the most socially isolated patients): 1 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: 5-6 times per week Bella/Christianity: none Special bella needs: No Seatbelt use: always Helmet use: Yes Helmet use: always Drive intox or ride w/intox route cdl driver: No Do you feel safe at home: Yes Do you feel safe in your relationship?: Yes Meds Allergies and Home Medications Allergies Allergy/AdvReac Type Severity Reaction Status Date / Time No Known Allergies Allergy Verified 12/31/20 10:34 Home Medication Medication Instructions Recorded pantoprazole 40 mg tablet,delayed 40 mg PO DAILY 12/12/20 release Current Visit Medications: Current Medications Generic Name Dose Route Start Last Admin Trade Name Freq PRN Reason Stop Dose Admin IV Miscellaneous Supplies 1 each 12/31/20 11:15 Iv Access IV DIRECTED KIRA Iodixanol 100 ml 12/31/20 12:15 12/31/20 12:10 Visipaque 320 Mg/Ml 100 Ml Btl IJ 01/30/21 23:59 100 ml DIRECTED KIRA Administration Sodium Chloride 0 ml 12/31/20 11:01 12/31/20 12:11 Normal Saline Flush 10 Ml Syr IVP 10 ml PRN PRN Administration Sodium Chloride 50 ml 12/31/20 12:15 12/31/20 12:10 Normal Saline - Diluent 50 Ml Vial IV 50 ml .FOR DI USE KIRA Administration Administered Discontinued Medications: Discontinued Medications Generic Name Dose Route Start Last Admin Trade Name Freq PRN Reason Stop Dose Admin Sodium Chloride 1,000 mls @ 1,000 mls/hr 12/31/20 11:01 12/31/20 12:56 Saline 1000ml Bag IV 12/31/20 12:00 Infused BOLUS ONE Infusion Piperacillin Sod/Tazobactam 50 mls @ 100 mls/hr 12/31/20 12:24 12/31/20 13:25 Sod 3.375 gm/ Sodium Chloride IVPB 12/31/20 12:53 Infused NOW ONE Infusion Protocol
[2020-12-31] MEDS: Lactated Ringers 1,000 ML 30 ML IV (15:55)
--- NOTE | 2020-12-31 16:00 | HPE_ITS ---
Date of service: 12/31/20 Time of Service: 15:04 Assessment and Plan Assessment and plan (1) GERD (gastroesophageal reflux disease): Status: Chronic Assessment and plan: Pt with ongoing GERD symptoms Continue daily pantoprazole (2) Acute appendicitis: Status: Acute Assessment and plan: This is a 25yo male who presents to the ED with acute appendicitis, without CT scan signs of rupture. Will admit to the general surgery service. The patient was offered treatment with antibiotics alone, or operative intervention. After reviewing the risks and benefits of both, the patient decided to proceed with surgery. He is NPO, will receive perioperative antibiotics, and will move expeditiously to the operating room when it is available. History of Present Illness History of Present Illness Chief Complaint: abdominal pain Narrative: This is a 25-year-old male with a history of GERD and IBS, who presents with a less than one day history of abdominal pain. He describes feeling pain in his upper abdomen when he awoke this morning at 5am that has migrated to the right lower quadrant without reprieve. He went to work, but soon had to leave because of the pain. He received his first Moderna vaccination on 12/29, and has been feeling nauseated since then. He took one bite of a Pop Tart at 10am but did not eat anymore because he was afraid that he would vomit. He denies fevers, chills, dysuria, or change in bowel habits. Review of Systems Constitutional Constitutional: Reports anorexia, Denies chills, Denies fever(s) and Reports headache(s) Eyes Eyes: Denies blurry vision ENT Ears, Nose, Mouth, and Throat: Denies dysphagia, Reports headache(s), Denies odynophagia, Denies tinnitus and Denies sore throat Cardiovascular Cardiovascular: Denies chest pain and Denies dyspnea Respiratory Respiratory: Denies cough and Denies dyspnea Gastrointestinal Gastrointestinal: Reports abdominal pain, Reports hematochezia (historically, not today), Denies dysphagia and Denies odynophagia Genitourinary Genitourinary: Denies difficulty urinating and Denies urinary urgency Musculoskeletal Musculoskeletal: Denies joint swelling, Denies numbness and Denies tingling Integumentary/Breasts Skin/Breast: Denies new lesions Neurologic Neurologic: Reports headache(s), Denies numbness and Denies tingling [facility] Medical History Ingrown toenail of left foot Family History Mother Hyperlipidemia Asthma Father Hyperlipidemia Hypertension Sister Asthma Maternal Grandfather , 49 Mental disorder Depression Alcohol abuse Depression Paternal Grandfather , 76 Diabetes Essential hypertension Heart disease Stroke Skin cancer Maternal Grandmother , 58 Essential hypertension Heart disease Hyperlipidemia Asthma Alcohol abuse Depression Diabetes Paternal Grandmother , 74 Diabetes Essential hypertension Hyperlipidemia Depression Heart disease Other Colon cancer Social History Smoking/Tobacco Use Status: Never Second Hand Exposure: Yes Smoking risk assessment performed?: Yes Alcohol Intake: current Alcohol Intake frequency: a few times a month Alcohol type: beer, wine and hard liquor Drug use: Never Substance use type: does not use Caregiver/Support person: No Household members: significant other Housing: apartment Communication Needs: None Do you need help understanding health information?: Rarely Pets and animals: Yes Pets and animals: dog(s) Sexually active: Yes Do you think of yourself as: straight/heterosexual Current gender identity: male What is your relationship status?: living with partner How often do you talk on the phone with friends or family?: never How often do you get together with friends or relatives?: twice per week How often do you attend zoroastrianism or sabianist services?: decline to answer Do you belong to any clubs or organized social groups?: no Panel score (0-1 are the most socially isolated patients): 1 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: 5-6 times per week Bella/Restorationist: none Special bella needs: No Seatbelt use: always Helmet use: Yes Helmet use: always Drive intox or ride w/intox feeder driver: No Do you feel safe at home: Yes Do you feel safe in your relationship?: Yes Meds Allergies and Home Medications Allergies Allergy/AdvReac Type Severity Reaction Status Date / Time No Known Allergies Allergy Verified 12/31/20 10:34 Home Medications Medication Instructions Recorded Confirmed Type pantoprazole 40 mg tablet,delayed 40 mg PO DAILY 12/12/20 12/31/20 History release Exam Const General: cooperative, healthy appearing, uncomfortable (slightly uncomfortable appearing) and no acute distress Nutritional Appearance: average body habitus and well nourished Orientation: alert, awake and oriented x3 HENMT Head: normocephalic and atraumatic Eyes Other: no scleral icterus Neck Neck: trachea midline and supple Resp Effort & Inspection: normal respiratory effort, able to speak in complete sentences and not labored Auscultation: clear to auscultation bilaterally Cardio Rate: regular rate Rhythm: regular rhythm Heart Sounds: S1 normal and S2 normal GI Inspection: normal to inspection and non-distended Palpation: soft, guarding in the RLQ, not rigid and tender at McBurney's point and psoas sign positive; Rovsing's sign negative Auscultation: absent bowel sounds Skin General skin exam: no rashes or lesions noted Neuro General: patient alert, patient awake and patient oriented x3 Cognition: normal cognition Speech: speech normal Extrem General: no calf tenderness Psych Appearance: grossly normal Mental Status: mental status grossly normal Mood: congruent mood Affect: normal affect Attitude: cooperative Insight: insight good Judgment: judgment good Results Imaging Abdomen CT scan report/results: report reviewed and image reviewed CT scan - pelvis: report reviewed and image reviewed Imaging Studies: CT abd/pel (12/31/20): IMPRESSION: 1. Findings are suspicious for acute appendicitis. No evidence of rupture at this time. Labs Result diagrams: 12/31/20 10:38 12/31/20 10:38 Labs: Laboratory Results - last 24 hr 12/31/20 12/31/20 12/31/20 10:38 10:38 11:48 WBC 10.84 H RBC 5.86 H Hgb 16.1 Hct 49.1 MCV 83.8 MCH 27.5 MCHC 32.8 RDW 12.5 Plt Count 161 MPV 10.8 Immature Gran % 0.5 Neutrophils % 78.2 Lymphocytes % 11.0 Monocytes % 8.0 Eosinophils % 1.9 Basophils % 0.4 Nucleated RBC % 0 Absolute Neutrophils 8.48 H Absolute Lymphocytes 1.19 L Absolute Monocytes 0.87 H Absolute Eosinophils 0.21 Absolute Basophils 0.04 Sodium 139 Potassium 3.8 Chloride 101 Carbon Dioxide 29.7 Anion Gap 8.3 BUN 11 Creatinine 1.0 Estimated GFR/1.73 m2 >= 60.00 Glucose 100 Calcium 9.4 Total Bilirubin 0.9 AST 14 L ALT 23 Alkaline Phosphatase 91 Total Protein 8.1 Albumin 4.6 Lipase 70 Urine Color Yellow Urine Clarity Clear Urine pH 8.0 Ur Specific [place] 1.020 Urine Protein Negative Urine Ketones Negative Urine Blood Negative Urine Nitrite Negative Urine Bilirubin Negative Urine Urobilinogen 0.2 Ur Leukocyte Esterase Negative Urine Glucose Negative COVID-19 Source SARS-CoV-2 (PCR) 12/31/20 13:00 WBC RBC Hgb Hct MCV MCH MCHC RDW Plt Count MPV Immature Gran % Neutrophils % Lymphocytes % Monocytes % Eosinophils % Basophils % Nucleated RBC % Absolute Neutrophils Absolute Lymphocytes Absolute Monocytes Absolute Eosinophils Absolute Basophils Sodium Potassium Chloride Carbon Dioxide Anion Gap BUN Creatinine Estimated GFR/1.73 m2 Glucose Calcium Total Bilirubin AST ALT Alkaline Phosphatase Total Protein Albumin Lipase Urine Color Urine Clarity Urine pH Ur Specific [place] Urine Protein Urine Ketones Urine Blood Urine Nitrite Urine Bilirubin Urine Urobilinogen Ur Leukocyte Esterase Urine Glucose COVID-19 Source Nasal/nares SARS-CoV-2 (PCR) Negative Last Vital Signs Temp 96.8 F L 12/31/20 10:31 Pulse 76 12/31/20 15:31 Resp 16 12/31/20 10:31 BP 127/71 12/31/20 15:31 Pulse Ox 98 12/31/20 15:32 COVID-19 Screening Have you, or household traveled for leisure in last 14 days?: No Had IN PERSON contact w/suspected or confirmed C-19 person: No
[2020-12-31] MEDS: ceFAZolin 1 GM/50 ML BAG 50 GM (16:15)
--- NOTE | 2020-12-31 17:00 | APP_PTH ---
PATIENT: Jake Bustamante LOC: U#:[id number] AGE/SX: 25/M ROOM: 226 RE12/31/[address]: Yosef Guerra : 1995 BED: A DIS: 01/01/2021 SPEC #: [id number] RECD: 12/31/20 18:35 STATUS: SOUMarisa REQ #: [id number] KILEY: 12/31/20 17:[address]: Yosef Guerra DEPT: Surgical Specimen RECD BY: Maggie Damon ENTERED: 12/31/20 18:36 SP TYPE: Appendix OTHR DR: Steve Min MD Tissues: 1 - APPENDIX NOT INCIDENTAL Procedures: GROSS AND MICRO LEVEL 3 Comments: [id number]
[2020-12-31] MEDS: Bupivacaine 0.5% Pres-Free 30 ML VIAL (17:21)
--- NOTE | 2020-12-31 18:12 | W.ANESPOSTOP ---
Postoperative Evaluation Date, Time and Location Date Performed: 12/31/20 Time Performed: 18:12 Patient Location: PACU Vital Signs Most Recent Imported Vital Signs: Most Recent Vital Signs Temp Pulse Resp BP Pulse Ox 36.5 C 65 16 136/77 100 12/31/20 18:00 12/31/20 18:06 12/31/20 18:06 12/31/20 18:06 12/31/20 18:06 Assessment Mental Status: Awake (Alert & Oriented to Patient Baseline) Airway and Respiratory Function: Patent airway with normal (patient baseline) respiratory exam Cardiovascular Function: Hemodynamically Stable Hydration Status: Adequately Hydrated Nausea & Vomiting: No Nausea or Vomiting Pain: Pt. Denies Any Pain Peripheral Nerve Block: Patient did not receive a nerve block
[2020-12-31] MEDS: Acetaminophen 325 MG TAB 650 MG PO (18:58)
--- NOTE | 2020-12-31 19:16 | DSE_ITS ---
DS: Diagnosis Discharge Diagnosis (1) Acute appendicitis: Status: Acute (2) GERD (gastroesophageal reflux disease): Status: Chronic (3) Family history of colon cancer: Status: Chronic Discharge Plan Disposition Patient Disposition: HOME Condition: Good Discharge Details Reason For Visit: acute appendicitis, s/p laparoscopic appendectomy Admit Date/Time: 12/31/20 15:47 Admit Provider: Yosef Guerra Attending Provider: Yosef Guerra Primary Care Provider: [place]endo [place]acie [place] Hospital Course Hospital Course: The patient presented to the Emergency Department and underwent a clinical evaluation. A CT abd/pel performed demonstrated acute appendicitis. A surgical consult was called and the patient was evaluated by Dr. Guerra. She agreed with this diagnosis. The patient elected for a surgical approach, and the patient was taken to the operating room and underwent an uneventful laparoscopic appendectomy. Home Meds and New Rx's Prescriptions: No Action pantoprazole 40 mg tablet,delayed release (DR/EC) 40 mg PO DAILY RF: 0 Discharge Instructions Instructions: Laparoscopic Appendectomy (DC) Activity:: Activity as Tolerated Equipment/Supplies:: No Equipment Needed Diet:: As Tolerated DS: Data Vitals/I&O Vitals and I&O: Vital Signs Temperature 98.6 F 12/31/20 18:57 Temperature Source Tympanic 12/31/20 18:57 Pulse 62 12/31/20 18:57 Pulse Rhythm Regular 12/31/20 18:29 Respiratory Rate 12 12/31/20 18:57 Respiratory Effort Non-Labored 12/31/20 18:29 Respiratory Depth Normal 12/31/20 18:29 Respiratory Pattern Normal 12/31/20 18:29 Blood Pressure 129/87 12/31/20 18:57 Blood Pressure Mean 84 12/31/20 15:31 Blood Pressure Position Supine 12/31/20 10:31 Pulse Oximetry 100 12/31/20 18:57 Respiratory End-tidal CO2 45 12/31/20 18:06 Oxygen Delivery Method Room Air 12/31/20 18:57 Oxygen Flow Rate 0 12/31/20 18:57 Pain Level 5 12/31/20 18:58 Intake & Output 12/30/20 12/31/20 12/31/20 23:59 11:59 23:59 Intake Total 1050 / 1050 Output Total 0 / 0 Balance 1050 / 1050 Weight 77.111 kg 78.3 kg Intake: IV 1050 / 1050 Oral 0 / 0 Output: Emesis 0 / 0 Other: Urine Appearance Clear Emesis Description None Data Completed and Pending Labs on day of discharge: Labs from last 24 hours 12/31/20 12/31/20 12/31/20 13:00 11:48 10:38 WBC 10.84 H RBC 5.86 H Hgb 16.1 Hct 49.1 MCV 83.8 MCH 27.5 MCHC 32.8 RDW 12.5 Plt Count 161 MPV 10.8 Immature Gran % 0.5 Neutrophils % 78.2 Lymphocytes % 11.0 Monocytes % 8.0 Eosinophils % 1.9 Basophils % 0.4 Nucleated RBC % 0 Absolute Neutrophils 8.48 H Absolute Lymphocytes 1.19 L Absolute Monocytes 0.87 H Absolute Eosinophils 0.21 Absolute Basophils 0.04 Sodium Potassium Chloride Carbon Dioxide Anion Gap BUN Creatinine Estimated GFR/1.73 m2 Glucose Calcium Total Bilirubin AST ALT Alkaline Phosphatase Total Protein Albumin Lipase Urine Color Yellow Urine Clarity Clear Urine pH 8.0 Ur Specific [place] 1.020 Urine Protein Negative Urine Ketones Negative Urine Blood Negative Urine Nitrite Negative Urine Bilirubin Negative Urine Urobilinogen 0.2 Ur Leukocyte Esterase Negative Urine Glucose Negative COVID-19 Source Nasal/nares SARS-CoV-2 (PCR) Negative 12/31/20 10:38 WBC RBC Hgb Hct MCV MCH MCHC RDW Plt Count MPV Immature Gran % Neutrophils % Lymphocytes % Monocytes % Eosinophils % Basophils % Nucleated RBC % Absolute Neutrophils Absolute Lymphocytes Absolute Monocytes Absolute Eosinophils Absolute Basophils Sodium 139 Potassium 3.8 Chloride 101 Carbon Dioxide 29.7 Anion Gap 8.3 BUN 11 Creatinine 1.0 Estimated GFR/1.73 m2 >= 60.00 Glucose 100 Calcium 9.4 Total Bilirubin 0.9 AST 14 L ALT 23 Alkaline Phosphatase 91 Total Protein 8.1 Albumin 4.6 Lipase 70 Urine Color Urine Clarity Urine pH Ur Specific [place] Urine Protein Urine Ketones Urine Blood Urine Nitrite Urine Bilirubin Urine Urobilinogen Ur Leukocyte Esterase Urine Glucose COVID-19 Source SARS-CoV-2 (PCR) [facility] Medical History (Updated 12/31/20 @ 19:18 by Yosef Guerra MD) Family history of colon cancer Ingrown toenail of left foot Family History Mother Hyperlipidemia Asthma Father Hyperlipidemia Hypertension Sister Asthma Maternal Grandfather , 49 Mental disorder Depression Alcohol abuse Depression Paternal Grandfather , 76 Diabetes Essential hypertension Heart disease Stroke Skin cancer Maternal Grandmother , 58 Essential hypertension Heart disease Hyperlipidemia Asthma Alcohol abuse Depression Diabetes Paternal Grandmother , 74 Diabetes Essential hypertension Hyperlipidemia Depression Heart disease Other Colon cancer Social History Smoking/Tobacco Use Status: Never Second Hand Exposure: Yes Smoking risk assessment performed?: Yes Alcohol Intake: current Alcohol Intake frequency: a few times a month Alcohol type: beer, wine and hard liquor Drug use: Never Substance use type: does not use Caregiver/Support person: No Household members: significant other Housing: apartment Communication Needs: None Do you need help understanding health information?: Rarely Pets and animals: Yes Pets and animals: dog(s) Sexually active: Yes Do you think of yourself as: straight/heterosexual Current gender identity: male What is your relationship status?: living with partner How often do you talk on the phone with friends or family?: never How often do you get together with friends or relatives?: twice per week How often do you attend jain or zoroastrian services?: decline to answer Do you belong to any clubs or organized social groups?: no Panel score (0-1 are the most socially isolated patients): 1 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
[2020-12-31] MEDS: Pantoprazole 40 MG VIAL IVP (20:05)
[2020-12-31] MEDS: Docusate Sodium 100 MG CAP PO (20:05)
[2020-12-31] MEDS: Lactated Ringers 1,000 ML 125 ML IV (21:36)
--- NOTE | 2020-12-31 21:36 | W.PM.OP ---
Date of service: 12/31/20 Time of Service: 17:30 Operative Note Operative Note DATE OF PROCEDURE: 12/31/20 PRE-OP DIAGNOSIS: acute appendicitis POST-OP DIAGNOSIS: same PROCEDURE: Laparoscopic appendectomy SURGEON: Yosef Guerra ANESTHESIA TYPE: General LMA/ETT Refer to Anesthesia Record ESTIMATED BLOOD LOSS: 10 PATHOLOGY: other (appendix) COMPLICATIONS: None Patient was transported to: PACU Patient's condition: stable Indications: This is a 25yo male who awoke with abdominal pain and anorexia this morning. When his pain did not subside he presented to the ED. Clinical evaluation revealed acute appendicitis, and a surgical consult was called. I personally revealed the clinical data, examined the patient, and was in agreement with the diagnosis. I reviewed the risks and benefits of non-operative management with antibiotics, as well as surgical intervention. The patient decided to proceed with surgical intervention. Findings: non-perforated inflamed appendix Procedure Description: The patient was identified by name and birthdate, brought into the operating room, and laid supine on the operating room table. Monitors were applied, SCDs were placed, and general anesthesia was induced. A her catheter was placed under sterile conditions. The left arm was tucked. A timeout was called and participated in by the entire OR staff. Once we were in agreement, we proceeded. The abdomen was prepped and draped in usual standard fashion. Local anesthestic was infused into the skin and subcutaneous tissues in the supraumbilical position. A vertical incision was made with a #15 blade. The subcutaneous tissues were with blunt dissection. The fascia was visualized, elevated, divided, and the abdomen was entered using Livia technique. A 12mm Visiport trocar was used to ensure safe intra-abdominal placement, a 10mm-30 degree camera was introduced, and pneumoperitoneum was established. The abdomen was inspected for an injury incurred while entering the abdomen, and there was none. We were initially underneath the omentum, but this corrected as we placed the two 5-mm ports were placed in the left lower quadrant, and suprapubic positions under direct vision. The patient was repositioned in Trendelenburg with right side up. Gentle medialization of the small bowel revealed an inflamed appendix at the base of the cecum. The appendix was elevated, and a window was created at the base of the appendix using a [place] dissector. Once an adequate window was created, the camera was switched to a 5mm. An endo-BARRON stapler with purple load was introduced, and the appendix was divided with a tiny cuff of cecum, ensuring no undesired tissues were included in the staple line. A gold load was then used to divide the mesoappendix. The appendix was placed in an endocatch bag, and passed off the field. The mesoappendix staple line at the level of the appendiceal artery was reinforced with a clip. The operative area was irrigated, and hemostastis ensured. The patient was replaced into a neutral position, and irrigant was suctioned. Again, the operative bed was observed for hemostasis, and it was dry. The two 5-mm trocars were then removed under direct vision, and pneumoperitoneum evacuated. The supraumbilical trocar was removed and the fascia was closed with a 0-vicryl in a figure-of-8 fashion. All incisions were infused with local anesthetic. The skin was closed with 4-0 monocryl, and the skin was dressed with steri-strips. All counts of sharp and soft instruments was correct. The patient was transferred to the PACU in stable condition.
[2020-12-31] MEDS: Ketorolac 15 MG/ML VIAL IVP (23:38)
[2021-01-01 00:09] VITALS: BP 118/66; PULSE 53; RESP 18; TEMP 36.2; O2SAT 99
[2021-01-01 05:11] VITALS: BP 102/60; PULSE 51; RESP 18; TEMP 35.8; O2SAT 98
[2021-01-01] MEDS: Ketorolac 15 MG/ML VIAL IVP ×2 (05:16→12:00)
[2021-01-01] MEDS: Normal Saline Flush 10 ML SYR IVP ×2 (05:16→12:01)
[2021-01-01] MEDS: Lactated Ringers 1,000 ML 125 ML IV ×2 (05:40→13:39)
[2021-01-01] MEDS: Docusate Sodium 100 MG CAP PO ×2 (07:59→13:39)
[2021-01-01] MEDS: Acetaminophen 325 MG TAB 650 MG PO (07:59)
[2021-01-01 08:03] VITALS: BP 133/81; PULSE 69; RESP 18; TEMP 36.2; O2SAT 100
[2021-01-01 14:59] VITALS: BP 123/72; PULSE 48; RESP 16; TEMP 36.9; O2SAT 99
--- NOTE | 2021-01-01 15:53 | DSE_ITS ---
DS: Diagnosis Discharge Diagnosis (1) Acute appendicitis: Status: Acute (2) GERD (gastroesophageal reflux disease): Status: Chronic (3) Family history of colon cancer: Status: Chronic Discharge Plan Disposition Patient Disposition: HOME Condition: Good Discharge Details Reason For Visit: acute appendicitis, s/p laparoscopic appendectomy Admit Date/Time: 12/31/20 15:47 Admit Provider: Yosef Guerra Attending Provider: Yosef Guerra [facility] Hospital Course: The patient presented to the Emergency Department and underwent a clinical evaluation. A CT abd/pel performed demonstrated acute appendicitis. A surgical consult was called and the patient was evaluated by Dr. Guerra. She agreed with this diagnosis. The patient elected for a surgical approach, and the patient was taken to the operating room and underwent an uneventful laparoscopic appendectomy. POD#1 the patient is tolerating a regular diet, is voiding well, and pain is controlled with non-narcotic medication. Home Meds and New Rx's Prescriptions: New tramadol [Ultram] 50 mg tablet 50 mg PO Q6H PRNQty: 7 RF: 0 Continued pantoprazole 40 mg tablet,delayed release (DR/EC) 40 mg PO DAILY RF: 0 Discharge Instructions Instructions: Laparoscopic Appendectomy (DC) Additional Instructions: Keep an ice bag on the incision. 20 minutes on and 20 minutes off. Ice keeps the swelling down and swelling causes pain. Make sure you wrap the ice pack in a towel and don't apply directly to the skin. -No driving x 72 hrs or of you are taking pain medications. -F/u Bernie HUTCHINSON 01/17 10am at [facility] [phone] Pain Control -off of work for the next two wks -Use ice! Ice keeps the swelling down and swelling is what causes pain. Never apply ice directly to the skin. Wrap it in a towel or cloth. Apply ice 20 minutes on and 20 minutes off for pain control. -Alternate w/ Tylenol and ibuprofen continuously for the first 72hrs. After that- takes as needed for pain. Take Tylenol 1000 mg by mouth with food every 6 hours as needed for pain. Or ibuprofen 600 mg by mouth with food every 6 hours as needed for pain. Do not take tylenol if you have a history of heavy drinking , hepatits C or liver problems. Do not take ibuprofen if you have a history of stomach ulcers/problems, bleeding problem or kidney issues. -Rx for ultram placed at your drug store to take if pain >7. Will cause constipation. -Regular diet. Start today w/ soft bland foods -no straining to move bowels -Take one dose of milk of Mag tonight or in am -pain meds are very constipating: if you do not move your bowels daily take a dose of OTC milk of magnesia -It is ok to shower. No bathe, soaking, swimming or hot tubs -Keep wound clean and dry. Wash incision with soap and water daily. Pat dry, don't rub. -You may find that your appetite is smaller. Eat 3-6 small meals throughout the day. It is important to drink lots of water after surgery, 6-10 glasses a day. -We do want you up walking, at least 5-6 times per day. This is very important to prevent pneumonia and blood clots. You can climb stairs, take them slowly. -No lifting over 5 pounds. This is very important to avoid developing a hernia in your incision. -You may find that you are very tired after surgery- this is normal. -please do not smoke for a minimum of 72 hours after surgery.- When to seek medical care Call your healthcare provider right away if you have any of these: ? More pain, redness, swelling, bleeding, or foul-smelling discharge around the incision area ? Fever of 101?F (38.3?C) or higher, or as directed by your child's healthcare provider ? Shaking chills ? Vomiting or nausea that doesn?t go away ? Numbness, coldness, or tingling around the incision area, or changes in skin color ? Opening of the sutures or wound Stitches or odilon come apart or fall out or surgical tape falls off before 7 days, or as directed by your healthcare provider call the surgery clinic [phone] or go to the Emergency Dept. of the hospital [phone] Stand Alone Forms: Nursing Discharge Form Referrals: Senia Kasper PA [[facility]] - 01/10/21 10:00 am Activity:: see above Equipment/Supplies:: No Equipment Needed Diet:: As Tolerated Discharge Orders Discharge Orders: Discharge Order (Routine); Ordered 01/01/21 Ordered By: Yuli Holley DS: Summary Time Spent with Patient providing and/or coordinating discharge services: Less than 30 minutes Status at Discharge Functional status at discharge: independent ambulation Overall status at discharge: patient is progressing back to baseline Mental Status: mental status grossly normal Speech and Movement: speech and movement normal Mood: congruent mood Affect: normal affect Exam Psych Mental Status: mental status grossly normal Speech and Movement: speech and movement normal Mood: congruent mood Affect: normal affect DS: Data Vitals/I&O Vitals and I&O: Vital Signs Temperature 36.9 C 01/01/21 14:59 Temperature Source Tympanic 01/01/21 14:59 Pulse 48 L 01/01/21 14:59 Pulse Rhythm Regular 01/01/21 11:12 Respiratory Rate 16 01/01/21 14:59 Respiratory Effort Non-Labored 01/01/21 11:12 Respiratory Depth Normal 01/01/21 11:12 Respiratory Pattern Normal 01/01/21 11:12 Blood Pressure 123/72 01/01/21 14:59 Blood Pressure Mean 84 12/31/20 15:31 Blood Pressure Position Supine 12/31/20 10:31 Pulse Oximetry 99 01/01/21 14:59 Respiratory End-tidal CO2 45 12/31/20 18:06 Oxygen Delivery Method Room Air 01/01/21 14:59 Oxygen Flow Rate 0 01/01/21 14:59 Pain Level 0 01/01/21 14:59 Intake & Output 12/31/20 01/01/21 01/01/21 23:59 11:59 23:59 Intake Total 1150 / 1150 1310 / 2550 1240 / 2550 Output Total 200 / 200 300 / 950 650 / 950 Balance 950 / 950 1010 / 1600 590 / 1600 Weight 78.3 kg Intake: IV 1050 / 1050 1009 / 2009 999 / 2009 Oral 100 / 100 300 / 540 240 / 540 Output: Urine 200 / 200 300 / 950 650 / 950 Emesis 0 / 0 Other: Urine Color Light Raquel Yellow Straw Urine Appearance Clear Clear Clear Urine Odor Normal Normal Normal Emesis Description None Voiding Methods Urinal Urinal Urinal [facility] Medical History (Updated 12/31/20 @ 19:18 by Yosef Guerra MD) Family history of colon cancer Ingrown toenail of left foot Family History Mother Hyperlipidemia Asthma Father Hyperlipidemia Hypertension Sister Asthma Maternal Grandfather , 49 Mental disorder Depression Alcohol abuse Depression Paternal Grandfather , 76 Diabetes Essential hypertension Heart disease Stroke Skin cancer Maternal Grandmother , 58 Essential hypertension Heart disease Hyperlipidemia Asthma Alcohol abuse Depression Diabetes Paternal Grandmother , 74 Diabetes Essential hypertension Hyperlipidemia Depression Heart disease Other Colon cancer Social History Smoking/Tobacco Use Status: Never Second Hand Exposure: Yes Smoking risk assessment performed?: Yes Alcohol Intake: current Alcohol Intake frequency: a few times a month Alcohol type: beer, wine and hard liquor Drug use: Never Substance use type: does not use Caregiver/Support person: No Household members: significant other Housing: apartment Communication Needs: None Do you need help understanding health information?: Rarely Pets and animals: Yes Pets and animals: dog(s) Sexually active: Yes Do you think of yourself as: straight/heterosexual Current gender identity: male What is your relationship status?: living with partner How often do you talk on the phone with friends or family?: never How often do you get together with friends or relatives?: twice per week How often do you attend evangelical or sabianist services?: decline to answer Do you belong to any clubs or organized social groups?: no Panel score (0-1 are the most socially isolated patients): 1 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
== END 2021-01-01 16:46 | disposition home or self-care (01) ==
LOC: ER 10:35 → SUR 15:43 → MS 18:15
PROVIDERS: Admitting Provider Surgery; Emergency Provider Student in an Organized Health Care Education/Training Program; PCP Family Medicine; Visit Provider Surgery
PROC: 0DTJ4ZZ Resection of Appendix, Percutaneous Endoscopic Approach (ICD-10-PCS; CPT 44970; principal; 2020-12-31 16:20)
DX: K35.890 Other acute appendicitis without perforation or gangrene (principal); K21.9 Gastro-esophageal reflux disease without esophagitis; K58.9 Irritable bowel syndrome, unspecified; Z80.0 Family history of malignant neoplasm of digestive organs
CPT/HCPCS: 44970; 36415; 80053; 83690; 87635; 96361; 96365; 99285; 74177; 81003; 85025; 88304; G0378; J0131; J0690; J1100; J1885; J2001; J2405; J2543; J2704; J3010

== ENCOUNTER 2021-04-05 08:54 | Outpatient (CLI) | payer OTHER, SELFPAY ==
[2021-04-06 13:22] LABS: COVID-19 RT-PCR UVMMC Result Negative (Negative)
== END 2021-04-05 08:55 | disposition home or self-care (01) ==
PROVIDERS: PCP Family Medicine; Visit Provider Nurse Practitioner Family
DX: Z20.822 Contact with and (suspected) exposure to COVID-19 (principal)
CPT/HCPCS: U0003

== ENCOUNTER 2021-05-16 18:43 | Outpatient (REF) | payer OTHER, SELFPAY ==
[2021-05-18 15:09] LABS: COVID-19 RT-PCR UVMMC Result Negative (Negative)
== END 2021-05-16 18:44 | disposition home or self-care (01) ==
LOC: LBN 18:43
PROVIDERS: Visit Provider Physician Assistant Medical
DX: Z20.822 Contact with and (suspected) exposure to COVID-19 (principal)
CPT/HCPCS: U0003

== ENCOUNTER 2021-08-26 14:57 | Outpatient (REF) | payer OTHER, SELFPAY ==
[2021-08-28 11:36] LABS: COVID-19 RT-PCR UVMMC Result Negative (Negative)
== END 2021-08-26 14:58 | disposition home or self-care (01) ==
LOC: LBN 14:57
PROVIDERS: PCP Family Medicine; Visit Provider Nurse Practitioner Family
DX: Z20.822 Contact with and (suspected) exposure to COVID-19 (principal)
CPT/HCPCS: U0003

== ENCOUNTER 2025-01-20 13:26 | Outpatient (REF) | payer BC, SELFPAY ==
[2025-01-20 13:36] LABS: Anion Gap 5.6 mmol/L (3-11); BUN 12 mg/dL (7-18); CO2 28.4 mmol/L (21.0-32.0); CREATININE 0.9 mg/dL (0.70-1.30); Calcium 9.5 mg/dL (8.5-10.1); Calculated LDL 152 mg/dL (<100); Chloride 103 mmol/L (98-107); Cholesterol 239 mg/dL (<200); Estimated GFR 119.31 (mL/min/1.73m2); Glucose 100 mg/dL (74-106); HDL Cholesterol 63 mg/dL (>or=40); Potassium 4.5 mmol/L (3.5-5.1); Sodium 137 mmol/L (136-145); Triglyceride 121 mg/dL (<150)
[2025-01-22 09:42] LABS: HIV-1/2 Ag & Ab Screen Negative (Negative)
[2025-01-23 11:21] LABS: Hepatitis C Ab w Rflx HCV PCR Negative (Negative)
== END 2025-01-20 13:27 | disposition home or self-care (01) ==
LOC: LBN 13:26
PROVIDERS: PCP Family Medicine; Visit Provider Family Medicine
DX: Z13.6 Encounter for screening for cardiovascular disorders (principal); Z13.1 Encounter for screening for diabetes mellitus; Z11.59 Encounter for screening for other viral diseases; Z11.4 Encounter for screening for human immunodeficiency virus [HIV]
CPT/HCPCS: 80048; 80061; 86803; 87389

== ENCOUNTER 2025-06-19 09:52 | Outpatient (CLI) | payer BC, SELFPAY ==
--- NOTE | 2025-06-19 15:40 | DI.RAD_ITS ---
Exam(s) XR WRIST RT COMPLETE EXAM: XR WRIST RT COMPLETE CLINICAL HISTORY: r wrist pain - lateral M77.8 ENTHESOPATHIES TENDINITIS. TECHNIQUE: 2D digital imaging was performed. Three views. COMPARISON: No exams were available for comparison FINDINGS: BONES: No acute fracture is present. No bony destructive lesion is seen. JOINTS: The carpal bones are normally aligned. SOFT TISSUE: Normal. IMPRESSION: Unremarkable radiographs of the right wrist. DATA REPOSITORY: RADIATION DOSE DELIVERED:
== END 2025-06-19 10:12 ==
LOC: DI 09:52
PROVIDERS: PCP Family Medicine; Visit Provider Family Medicine
DX: M77.8 Other enthesopathies, not elsewhere classified (principal)
CPT/HCPCS: 73110